=== PATIENT | male | born 1970 | race Caucasian/White ===

== ENCOUNTER 2016-11-11 20:50 | Emergency (ER) | payer OTHER ==
[~2016-11-11] VITALS: Ht 180.3 cm; Wt 90.9 kg
[~2016-11-11 20:50] MED LIST: AZIT250T4 PO
[2016-11-11 21:12] VITALS: BP 124/84; PULSE 87; RESP 15; O2SAT 95
--- NOTE | 2016-11-11 21:56 | ED.REPORT ---
HPI-Head Prob / Injury Date of Service Nov 11, 2016 ED Provider: Simeon Shah DO This patient is a 46 year old male presenting to the ED complaining of neck pain after slipping on ice and falling. He states that he did not hit his head or lose consciousness after falling and was able to stand up afterwards. He admits to neck, left shoulder, and left elbow pain. Patient is not on any blood thinners. Nursing Notes Stated Complaint: FELL/NECK AND ARM INJURY Chief Complaint: Head, Face, Neck Trauma Nursing Notes Reviewed: Yes Allergies: Coded Allergies: No Known Allergies (Unverified , 11/11/16) Scheduled Azithromycin (Zithromax (Z-Pancho)) 250 Mg Tablet 250 MG PO DIRECTED Take two tablets by mouth on day 1, then take one tablet daily on days 2 through 5. General Time Seen by Provider: 21:56 Chief Complaint Other (Neck pain) Hx Obtained From: Patient Arrived By: Walk-in Onset Occurred: 1 - 4 hours ago Symptom Duration: Since onset Progression Since Onset: Constant Caused by: Fall from (ice slippage ) Location: : Neck Severity: Current: Moderate Severity: Maximum: Moderate Immunizations: Unknown Recent Healthcare: No recent doctor visit, No recent hospitalization Similar Sx Previous: No Past Medical History Past Medical History Denies Past Surgical History Denies Smoking History Unknown if Ever Smoker Social History Alcohol Use: "Social" Other Social History: Local resident Ambulatory Status Independent Review of Systems Basic Review of Systems Respiratory: No shortness of breath, No cough Cardiovascular: No chest pain GI: Denies: Abdominal pain Musculoskeletal: Reports: Joint pain (elbow, shoulder L), Neck pain, Denies: Back pain Complete sys rev & neg: except as marked. Physical Exam Initial Vital Signs Vital Signs (First) Date Time Temp Pulse Resp B/P Pulse Ox O2 Delivery O2 Flow Rate FiO2 11/11/16 21:12 36.2 87 15 124/84 95 Room Air Initial VS: Reviewed Respiratory: Breath sounds normal, Clear to auscultation, No respiratory distress Cardiovascular: Regular rate & rhythm, Heart sounds normal, Intact distal pulses Abdomen / GI: Soft, Non-tender, No guarding, No rebound, No distention Lymphatic: No lymphadenopathy Extremities: Vascular intact, Neuro intact, No swelling, No tenderness Skin: Warm, Dry, No cyanosis Psychiatric: Mood/affect normal, Behavior normal, Normal thought content Neck: Supple midline C-spine tenderness tenderness of C7 Left Shoulder: Positive: Tenderness present... left scapula tenderness Interpretation & Diagnostics Pulse Oximetry Interpretation Pulse Oximetry Interpretation: 95% on room air Pulse Oximetry: Pulse Ox normal X-Ray Interpretation Xray Interpretation: IMPRESSION: No fracture. No osseous lesion. If there are persistent symptoms or clinical suspicion for pathology, then repeat radiographs or advanced imaging (CT, MRI or bone scan) should be considered for further evaluation. Dictated by: Viola Engel MD, PhD on 11/11/2016 at 21:55 X-Ray Ordered: Elbow left Interpretation / Wet Read by: Interpret - Radiologist CT C-Spine Interpretation Impression: Degenerative spinal changes. Interpretation / Wet Read by: Interpret - Radiologist Re-Eval/Medical Decision Med Decision/Clinical Course Fall <5ft without loss of consciousness, CT head not indicated C-spine CT was indicated due to midline C-spine tenderness Source of Hx: Old records Re-Evaluation/Progress : Time of Eval: 00:30 Patient Status: Condition improved Re-Evaluation/Progress Note: Pt. rechecked. His condition has improved. Patient's plan for discharge has been discussed. Patient understands and agrees with the plan. All questions have been addressed at this time. Counseled Regarding: Diagnosis, Lab results, Need for follow-up, When/why to return to ED Discharge & Departure Primary Impression: Neck sprain Encounter type: initial encounter Qualified Code: S13.9XXA - Sprain of joints and ligaments of unspecified parts of neck, initial encounter Additional Impression: Shoulder contusion Encounter type: initial encounter Laterality: left Qualified Code: S40.012A - Contusion of left shoulder, initial encounter Disposition: Home All VS Reviewed: Yes Condition: Stable Patient Instructions: Cervical Sprain (ED), Contusions in Adults (ED) Additional Instructions: Take 1 to 2 Percocet every six hours as needed for severe pain. Take Naprosyn twice daily for moderate pain. Do not drive, drink alcohol, or consume acetaminophen while taking the Percocet. Your x-ray and scan were reassuring. Follow up with your primary care physician in one week for follow up. Return to the emergency department if you develop any new or worsening symptoms. Wear the shoulder immobilizer for the next few days. Set up a follow-up with her primary care physician or the referral orthopedic surgeon. Rest your arm for the next few days. Referrals: [facility]CP (PCP) Delmer Pacheco MD Scribe Attestation Portions of this note were transcribed by Aristeo Barton and Marcy Rush. I, Dr. Shah, personally performed the history, physical exam and medical decision- making; I reviewed and confirmed the accuracy of the information in the transcribed note. Signed by: Aristeo Barton and Jorge Radford, 11/12/2016 and 0111. copies to: [facility] Simeon Shah DO Nov 11, 2016 21:56 Latasha Rush [Marcy] Nov 11, 2016 22:15 ARISTEO BARTON Nov 12, 2016 00:12
--- NOTE | 2016-11-11 21:57 | DRSVH ---
PROCEDURE: X-RAY LEFT ELBOW COMPLETE, MINIMUM THREE VIEWS ([id number]) INDICATIONS: left elbow contusion TECHNIQUE: 3 views of the elbow were acquired. COMPARISON: None. FINDINGS: Bones: No fractures or dislocations. No suspicious bony lesions. Soft tissues: No elbow joint effusion. No suspicious soft tissue calcifications. IMPRESSION: No fracture. No osseous lesion. If there are persistent symptoms or clinical suspicion f or pathology, then repeat radiographs or advanced imaging (CT, MRI or bone scan) should be considered for further evaluation. Dictated by: Viola Engel MD, PhD on 11/11/2016 at 21:55 Approved by: Viola Engel MD, PhD on 11/11/2016 at 21:55
[2016-11-11] MEDS ORDERED: _oxyCODONE/APAP 5-325 mg Tablet PO PRN (22:15)
[2016-11-11] MEDS ORDERED: Ketorolac 30 mg/mL 2 mL Inj IM ONE (22:15)
[2016-11-12 00:50] VITALS: BP 124/84; PULSE 87; RESP 15; O2SAT 95
--- NOTE | 2016-11-12 07:57 | DRSVH ---
PROCEDURE: X-RAY LEFT SHOULDER, MINIMUM TWO VIEWS ([id number]) INDICATIONS: fall, shoulder pain TECHNIQUE: 3 views of the shoulder were acquired. COMPARISON: Chest 02/05/2016; CT chest 03/01/2016. FINDINGS: Bones: No fractures or dislocations. No suspicious bony lesions. Visualized ribs appear intact. Soft tissues: A partially calcified 1.9 cm round pulmonary nodule is reidentified within the lingula. IMPRESSION: 1. No acute abnormality of the shoulder. 2. Calcified granuloma left upper lobe. Dictated by: Mao Espinosa M.D. on 11/12/2016 at 7:55 Approved by: Mao Espinosa M.D. on 11/12/2016 at 7:55
--- NOTE | 2016-11-12 09:04 | DRSVH ---
PROCEDURE: CT CERVICAL SPINE WITHOUT CONTRAST ([id number]) INDICATIONS: fall, neck pain and injury TECHNIQUE: Noncontrast 3 mm thick sections acquired from the skull base to the T4 level. Sagittal and coronal r eformats were then constructed. For radiation dose reduction, the following was used: automated exp osure control, adjustment of mA and/or kV according to patient size. COMPARISON: None. FINDINGS: Image quality: Excellent. Bones: No fractures or dislocations. Visualized superior ribs are intact. Multilevel degenerative d isc changes are noted. Soft tissues: Prevertebral soft tissues are normal in thickness. No paravertebral hematomas. No ap ical pneumothoraces. Calcified mediastinal lymph node is noted compatible with sequela of granulomato us disease or treated lymphoma; please correlate with clinical history. IMPRESSION: No fracture. No acute osseous lesion. If symptoms and/or clinical suspicion for patholog y persists, evaluation with MRI may be helpful for further assessment. Dictated by: Viola Engel MD, PhD on 11/12/2016 at 9:02 Approved by: Viola Engel MD, PhD on 11/12/2016 at 9:02
== END 2016-11-12 00:51 | disposition home or self-care (01) ==
LOC: SED 20:50
DX: S13.9XXA Sprain of joints and ligaments of unspecified parts of neck, initial encounter (principal); S40.012A Contusion of left shoulder, initial encounter; W00.0XXA Fall on same level due to ice and snow, initial encounter; Y93.89 Activity, other specified; Y92.481 Parking lot as the place of occurrence of the external cause; Y99.8 Other external cause status; M25.522 Pain in left elbow
CPT/HCPCS: 72125; 73030; 73080; 96372; 99285; J1885